=== PATIENT | male | born 1955 | race Two or more races ===

== ENCOUNTER → 2024-03-19 | Outpatient (CLI) | payer OTHER, SELFPAY ==
--- NOTE | 2024-03-19 10:30 | ECHO_ITS ---
Transthoracic Echo Report Ht (in): 67 Wt (lb): 168 Exam Location: Echo Lab Status: Preadmit Armature Tester: Queenie Rodríguez Indications: Procedure Performed: BP: / HR: Technical Quality: Fair MEASUREMENTS (Male / Female) Normal Values 2D ECHO LVOT Diameter 2.0 cm LA Volume Index 20.3 cm?/m? 16 - 28 cm?/m? Ascending Aorta Diameter 3.2 cm M-MODE Aortic Root Diameter MM 2.7 cm LA Systolic Diameter MM 3.9 cm LA Ao Ratio MM 1.4 AV Cusp Separation MM 2.2 cm DOPPLER AV Peak Velocity 115.0 cm/s AV Peak Gradient 5.3 mmHg AV Mean Gradient 3.0 mmHg AV Velocity Time Integral 22.7 cm LVOT Peak Velocity 91.6 cm/s LVOT Peak Gradient 3.4 mmHg LVOT Velocity Time Integral 20.0 cm AV Area Cont Eq vti 2.8 cm? AV Area Cont Eq pk 2.5 cm? MV Peak Velocity 76.0 cm/s MV Peak Gradient 2.3 mmHg MV Mean Velocity 40.7 cm/s MV Mean Gradient 1.0 mmHg MV Area PHT 3.1 cm? Mitral E Point Velocity 46.1 cm/s Mitral A Point Velocity 56.8 cm/s Mitral E to A Ratio 0.8 LV E' Lateral Velocity 11.7 cm/s Mitral E to LV E' Lateral Ratio 3.9 LV E' Septal Velocity 7.6 cm/s Mitral E to LV E' Septal Ratio 6.0 FINDINGS Left Ventricle Normal left ventricular size, wall thickness, systolic function with no obvious regional wall motion abnormalities.The ejection fraction is visually estimated at 55-60 %. Right Ventricle The right ventricle is normal in size and systolic function. Left Atrium The left atrium is normal by two-dimensional, color flow and Doppler imaging with no structural abnormalities, no thrombus formation present. Right Atrium The right atrium is normal by two-dimensional imaging, color flow and Doppler imaging with no struct ural abnormalities, no thrombus formation present. Atrial Septum The interatrial septum appears normal with no evidence of a shunt. Aorta The aorta is normal by two-dimensional, color flow and Doppler interrogation. Mitral Valve The mitral valve is normal by two-dimensional, color flow and Doppler interrogation. There is trace mitral valve regurgitation. Aortic Valve The aortic valve is trileaflet and normal by two-dimensional, color flow and Doppler interrogation. There is no significant aortic valve regurgitation. Tricuspid Valve The tricuspid valve is normal by two-dimensional, color flow and Doppler interrogation. There is tra ce tricuspid valve regurgitation. Pulmonic Valve There is no significant pulmonic valve regurgitation. Vessels The pulmonary artery appears normal. The inferior vena cava pulmonary and hepatic veins appear deb l. Pericardium The pericardium is normal by two-dimensional imaging. There is no significant pericardial effusion. CONCLUSIONS Deb LV size and function. Stage I diastolic dysfunction. Estimated EF 60% Normal RV size and function. Trace mitral and trace tricuspid regurgitation . Katya Christianson (Electronically Signed) Final Date: 20 March 2024 08:46
== END | disposition home or self-care (01) ==
PROVIDERS: PCP Family Medicine; Referring Provider Internal Medicine Hematology & Oncology; Visit Provider Internal Medicine Hematology & Oncology
DX: I08.1 Rheumatic disorders of both mitral and tricuspid valves (principal); C18.7 Malignant neoplasm of sigmoid colon
CPT/HCPCS: 93306

== ENCOUNTER 2024-05-25 10:29 | Outpatient (RCR) | payer OTHER, SELFPAY ==
[2024-05-22 11:58] LABS: Basophils % (Auto) 1 % (0-2.5); Eosinophils # (Auto) 0.5 Thou/mm3 (0.0-0.5); Eosinophils % (Auto) 7 % (0-10); Hematocrit 41.6 % (41.0-53.0); Hemoglobin 14.4 g/dL (13.5-16.0); Immature Granulocytes % (Auto) 0 % (0-0); Immature Granulocytes Auto 0.03 Thou/mm3 (0.00-0.00); Lymphocytes # (Auto) 2.4 Thou/mm3 (1.0-4.8); Lymphocytes % (Auto) 35 % (10-50); Mean Corpuscular HGB Conc 34.6 g/dl (31.0-37.0); Mean Corpuscular Hemoglobin 31.9 pg (25.0-35.0); Mean Corpuscular Volume 92 fL (80-100); Monocytes # (Auto) 0.6 Thou/mm3 (0.0-0.8); Monocytes % (Auto) 8 % (0-12); Neutrophils # (Auto) 3.3 Thou/mm3 (1.8-7.7); Neutrophils % (Auto) 49 % (37-80); Nucleated Red Blood Cell % 0 /100 WBC (0); Platelet Count 169 Thou/mm3 (140-440); RDW Standard Deviation 43.3 fL (35.1-43.9); Red Blood Count 4.52 Miln/mm3 (4.50-5.90); White Blood Count 6.8 Thou/mm3 (3.8-10.6)
[2024-05-22 12:13] LABS: Carcinoembryonic Antigen 2.3 ng/mL (0.0-5.0)
[2024-05-22 12:16] LABS: Alanine Aminotransferase 23 U/L (10-49); Albumin, Serum 4.7 gm/dL (3.4-4.8); Albumin/Globulin Ratio 2.1 (1.2-2.2); Alkaline Phosphatase 132 U/L (46-116); Anion Gap 9 (7-16); Aspartate Amino Transferase 26 U/L (0-34); BUN/Creatinine Ratio 11 Ratio (12-20); Blood Urea Nitrogen 10 mg/dL (9-23); Calcium 9.5 mg/dL (8.3-10.6); Calcium (Corrected) 9.5 mg/dL (8.5-10.1); Carbon Dioxide 25.2 mMol/L (20.0-31.0); Chloride 105 mMol/L (98-107); Creatinine (Component) 0.9 mg/dL (0.6-1.3); Globulin 2.2 gm/dL (2.3-3.5); Glucose 102 mg/dL (74-106); Osmolality,Calculated 276 (275-295); Potassium 3.8 mMol/L (3.4-5.1); Sodium 139 mMol/L (136-145); Total Protein 6.9 gm/dL (5.7-8.2); eGFR > 60 See Note
--- NOTE | 2024-05-25 10:55 | CTCFLWUP_ITS ---
Patient: VIVIENNE HE : 1955 Page 5 of 6 FOLLOW UP NOTE DATE OF SERVICE: 05/25/2024 NAME: VIVIENNE HE ACCOUNT: [id number] : 1955 AGE: 68 INTERVAL HISTORY: Follow-up Patient is doing well. He still have numbness and tingliness in his hands. Uses less gabapentin. Still on seizure medicines. 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 S/p surgery (07/03/2022) S/p 12 cycles of adjuvant FO LFOX 6 chemotherapy (10/17/2022?05/07/2023). Mr. He received oxaliplatin for the first 9 cycles. 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 S/p surgery (07/03/2022) TREATMENT HISTORY: Care?Plan Start?Date Cycle Day Intent mFOLFOX-6?-?5FU?400?+?2400?CIV,?LVR?400,OXALIplat?85 10/17/2022 1 14 Curative?(adjuvant) HISTORY OF PRESENT ILLNESS: Is a 68-year-old Syriac-speaking male with the following oncology history. 05/29/2022: Mr. He had colonoscopy done for abdominal pain. 06/14/2022: Mr. He had CT scan of the abdomen and pelvis with IV contrast? 07/03/2022: Mr. He had following surgery? 09/13/2022: PET/CT scan- 10/15/2022: CEA 1.7 10/17/2022: Mr. He received first cycle of adjuvant FOLFOX. 03/15/2023: PET/CT scan? 10/17/2022 - 05/07/2023: Mr. He received 12 cycles of modified FOLFOX 6. He received only 9 cycle s of oxaliplatin. Oxaliplatin was discontinued due to starting of peripheral neuropathy. Last dose of oxaliplatin was given on 11/10/2019. 08/15/2023: CEA 2.0. 09/11/2023: CT scan of the abdomen and pelvis with IV contrast OTHER MEDICAL HISTORY/CONDITIONS: HTN Colon?Cancer?-?dx?07/09/22 Exploratory Laporotom; Colectomy with low pelvie coloprotostomoy; ileocecectomy with primary anastomo sis-07/03/22 FAMILY HISTORY: Children:?DAUGHTER?/??UNKNOWN SOCIAL HISTORY: Occupational?History:?RETIRED [employer] Education?Level:?Completed High School Marital?Status:?Life?Partner Tobacco?Pack?per?Day:?0 Tobacco?Use:?Denies ETOH Use:?Drinks 12 pack beer/week x 25yrs Drug?Note:?Smokes marijuana 3-4 x /week x 30yrs; used LSD;Cocaine x4 yr Social?History?Note:?Lives?alone MEDICATIONS: 1. aspirin - 81 mg 1 tab Daily 2. Colace - 100 mg 1 Capsule one po three times a day 3. DULoxetine - 30 mg 1 Capsule Daily 4. gabapentin - 300 mg 2 Capsule Three times a day 5. hydrocodone-acetaminophen - 5-325 mg 1 tab q6 6. lisinopril - 2.5 mg 1 tab Daily 7. lisinopril - 5 mg 0.5 tab As directed 8. Vitamin D3 - 1,000 unit 1 Capsule Daily Medications Last Reconciled by Gali Persaud MA on 01/27/2024 ALLERGIES: No Known Drug Allergies REVIEW OF SYSTEMS: A complete 14-point review of systems was performed and is negative except as noted in interval histo ry. PHYSICAL EXAMINATION: VITAL SIGNS: PAIN: 0 - No pain ECOG Performance Status: 1 - Symptomatic; ambulatory; restricted in strenuous activity GENERAL APPEARANCE: Appears well, in no apparent distress, appropriately interactive. HEENT: Normocephalic, no temporal wasting, normal conjunctiva, no scleral icterus, normal hearing, li ps without lesions, neck normal range of motion. CARDIOVASCULAR: Not assessed. PULMONARY: Normal respiratory effort, no respiratory distress or use of accessory muscles, speaking i n full sentences, no tachypnea. EXTREMITIES: No pedal edema or cyanosis. SKIN: Normal skin appearance. NEUROLOGIC: Alert and oriented x4. PSHYCHIATRIC: Appropriate affect, mood normal, behavior normal, intact thought and speech. LABORATORY DATA: I have personally reviewed and interpreted each of the patient?s relevant lab tests, abnormal finding s are below: Date 05/22/24 ??CEA?(O*)?(ng/ml) 2.3 ASSESSMENT/PLAN: 1. Stage IIIc (pT3, pN2B, cM0) at least 2 poorly differentiated invasive adenocarcinoma of the sigmoi d colon with lymphovascular and perineural invasion. S/p surgery (07/03/2022) PET CT scan done on 03/15/2023 was negative for metastatic disease. Status post 12 cycles of adjuvant chemotherapy with FOLFOX 6 as documented above. For the last 3 cyc les he did not get oxaliplatin due to peripheral neuropathy. CEA is in the normal range. 2. Peripheral neuropathy Stable . getting better 3. Seizure Advised to follow with neurology ORDERS: CT chest abdomen and pelvis RETURN TO CLINIC: 3 months BILLING AND COMPLIANCE: I reviewed external records from providers outside my specialty as summarized above. I spent a total of 50 minutes on this patient?s care on the day of their visit excluding time spent related to any bi lled procedures. This time includes time spent with the patient as well as time spent documenting in the medical record, reviewing patients records and tests, obtaining history, placing orders, communi cating with other healthcare professionals, counseling the patient, family or caregiver, and/or care coordination for the diagnoses above. Electronically Signed by: Jeremy Zamora MD T: 10:53 AM CC: PCP: Melany Francisco Referring: Melany Francisco This document was completed utilizing speech recognition software. Grammatical errors, random word in sertions, pronoun errors, and incomplete sentences are an occasional consequence of this system due t o software limitations, ambient noise, and hardware issues. Any formal questions or concerns about th e content, text or information contained within the body of this dictation should be directly address ed to the provider for clarification.
== END 2024-05-29 23:59 | disposition home or self-care (01) ==
LOC: SCTC 10:29
PROVIDERS: PCP Family Medicine; Referring Provider Family Medicine; Visit Provider Internal Medicine Hematology & Oncology
DX: C18.7 Malignant neoplasm of sigmoid colon (principal); G62.9 Polyneuropathy, unspecified; R56.9 Unspecified convulsions
CPT/HCPCS: 36591; 80053; 82378; 85025; 99212; A4216; J1642; G0463

== ENCOUNTER 2024-06-25 08:18 | Outpatient (RCR) | payer OTHER, SELFPAY ==
--- NOTE | 2024-06-25 08:52 | CTCFLWUP_ITS ---
[facility] [address] [place], [place] [address] FOLLOW-UP NOTE Date: 06/25/2024 MR#: [id number] Name: VIVIENNE HE : 1955 Dx: C18.7 Malignant neoplasm of sigmoid colon Identification. Patient with history of stage IIIc ([id number]) adeno CA rectosigmoid colon with lymphovascular and perineural invasion status post surgery 07/03/2022. Completed adjuvant chemo with FOLFOX under Dr. Menendez?s direction completed 05/07/2023. CT 09/07/2023 showed no evidence of met disease. PET/CT Still having some neuropathic symptoms with some pain. She has been prescribed gabapentin from the neurologist but states that occasional [place] is helpful and he takes it sparingly only half or 1 tab a day. Labs 05/22/2024 CEA remains low at 2.3 CBC shows normal hemoglobin at 14.4 Assessment. 1. History of stage IIIc adeno CA the rectosigmoid completed adjuvant chemo 05/07/2023. Postop imaging studies of PET and CT showed no evidence of recurrence. Most recent CEA 05/22/2024 low at 2.3 2. Having some pain with lingering neuropathic symptoms needing occasional [place] along with gabapentin. Renewed [place] checked cures website. 3. Has follow-up with Dr. Zamora in 2 months. Electronically signed by: John Servin M.D. 06/25/2024 8:49 AM
== END 2024-06-26 23:59 | disposition home or self-care (01) ==
LOC: SCTC 08:18
PROVIDERS: PCP Family Medicine; Referring Provider Family Medicine; Visit Provider Radiology Therapeutic Radiology
DX: Z08 Encounter for follow-up examination after completed treatment for malignant neoplasm (principal); Z85.038 Personal history of other malignant neoplasm of large intestine; Z92.21 Personal history of antineoplastic chemotherapy; G62.9 Polyneuropathy, unspecified
CPT/HCPCS: 99213; G0463

== ENCOUNTER → 2024-08-21 | Outpatient (CLI) | payer OTHER, SELFPAY ==
--- NOTE | 2024-08-21 14:00 | XR_ITS ---
Examination: CT chest with intravenous contrast CT abdomen with intravenous contrast CT pelvis with intravenous contrast 2-D coronal and sagittal reconstructions Time of exam: August 21, [address] abdomen pelvis September 11, 2023, abdomen sonogram Second 2023, PET CT scan September 13, 2022. INDICATIONS: Diagnosis malignant neoplasm colon, post surgical removal 2.5 years ago CTDI: vol (mGy) : 16 DLP: (mGycm): 716 Technique: Multiple axial images of the chest, abdomen and pelvis with intravenous contrast, 3.0 mm slice thickness. Images obtained post intravenous injection Isovue 370 60 cc 2-D sagittal coronal reconstructions Low dose protocols, adjustment MA KV according to patient size automated exposure control FINDINGS: No thoracic aortic aneurysm dilatation No pulmonary artery filling defects No paratracheal tracheobronchial or bronchopulmonary adenopathy Calcified granuloma left lower lobe No noncalcified pulmonary metastatic nodules 8mm liver cysts No solid liver lesions No gallstones Spleen not enlarged No pancreatic or adrenal mass No renal or ureteral calculi, no hydronephrosis Aorta normal size 6 cm umbilical hernia defect containing colon but no incarcerated bowel No abdominal or pelvic lymphadenopathy Urinary bladder intact No significant prostatomegaly Prominent osteopenia Osseous structures intact Impression: No interval metastatic disease
== END | disposition home or self-care (01) ==
LOC: CCTX 13:34
PROVIDERS: PCP Family Medicine; Referring Provider Internal Medicine Hematology & Oncology; Visit Provider Internal Medicine Hematology & Oncology
DX: C18.7 Malignant neoplasm of sigmoid colon (principal)
CPT/HCPCS: 71260; 74177; A4649; Q9967

== ENCOUNTER 2024-08-24 12:59 | Outpatient (RCR) | payer OTHER, SELFPAY ==
[2024-08-21 11:01] LABS: Basophils # (Auto) 0.1 Thou/mm3 (0.0-0.2); Basophils % (Auto) 1 % (0-2.5); Eosinophils # (Auto) 0.4 Thou/mm3 (0.0-0.5); Eosinophils % (Auto) 5 % (0-10); Hematocrit 41.4 % (41.0-53.0); Hemoglobin 14.3 g/dL (13.5-16.0); Immature Granulocytes % (Auto) 0 % (0-0); Immature Granulocytes Auto 0.02 Thou/mm3 (0.00-0.00); Lymphocytes # (Auto) 2.6 Thou/mm3 (1.0-4.8); Lymphocytes % (Auto) 37 % (10-50); Mean Corpuscular HGB Conc 34.5 g/dl (31.0-37.0); Mean Corpuscular Hemoglobin 32.6 pg (25.0-35.0); Mean Corpuscular Volume 94 fL (80-100); Monocytes # (Auto) 0.6 Thou/mm3 (0.0-0.8); Monocytes % (Auto) 9 % (0-12); Neutrophils # (Auto) 3.3 Thou/mm3 (1.8-7.7); Neutrophils % (Auto) 48 % (37-80); Nucleated Red Blood Cell % 0 /100 WBC (0); Platelet Count 203 Thou/mm3 (140-440); RDW Standard Deviation 44.1 fL (35.1-43.9); Red Blood Count 4.39 Miln/mm3 (4.50-5.90)
[2024-08-21 11:22] LABS: Alanine Aminotransferase 26 U/L (10-49); Albumin, Serum 4.5 gm/dL (3.4-4.8); Alkaline Phosphatase 115 U/L (46-116); Anion Gap 7 (7-16); Aspartate Amino Transferase 29 U/L (0-34); BUN/Creatinine Ratio 17 Ratio (12-20); Bilirubin,Total 1.1 mg/dL (0.3-1.2); Blood Urea Nitrogen 15 mg/dL (9-23); Calcium 9.3 mg/dL (8.3-10.6); Calcium (Corrected) 9.3 mg/dL (8.5-10.1); Carbon Dioxide 26.9 mMol/L (20.0-31.0); Carcinoembryonic Antigen 2.3 ng/mL (0.0-5.0); Chloride 106 mMol/L (98-107); Creatinine (Component) 0.9 mg/dL (0.6-1.3); Globulin 2.2 gm/dL (2.3-3.5); Glucose 125 mg/dL (74-106); Osmolality,Calculated 281 (275-295); Potassium 3.9 mMol/L (3.4-5.1); Sodium 140 mMol/L (136-145); Total Protein 6.7 gm/dL (5.7-8.2); eGFR > 60 See Note
--- NOTE | 2024-08-25 01:09 | CTCFLWUP_ITS ---
Patient: VIVIENNE HE : 1955 Page 6 of 8 FOLLOW UP NOTE DATE OF SERVICE: 08/24/2024 NAME: VIVIENNE HE ACCOUNT: [id number] : 1955 AGE: 68 INTERVAL HISTORY: Summary Vivienne He, a 68yo male presenting for cancer surveillance follow-up, has a history of colon cancer treated with 12 cycles of FOLFOX (oxaliplatin discontinued for last 3 cycles). He has stable peripheral neuropathy managed with gabapentin and seizure medications, and recent hearing loss. CT scan () showed no metastatic disease with normal CEA (2.3). Plan includes Signatera testing, port removal referral, 6-month follow-up, continued neuropathy management, hearing device recommendation, and blood glucose monitoring. Chief Complaint Follow-up visit for cancer surveillance History of Present Illness Vivienne He is a 68-year-old male with a history of cancer, last seen on May 25, 2024, presenting for follow-up. He previously complained of numbness and tingling in his hand, for which he has been using gabapentin and seizure medications. The patient's peripheral neuropathy, which developed during his chemotherapy treatment, remains stable. He is currently being followed by neurology for this condition. Mr. He completed 12 cycles of adjuvant chemotherapy with FOLFOX, though he did not receive oxaliplatin for the last 3 cycles due to the peripheral neuropathy. Since his last visit, Mr. He has noted hearing loss. No other new symptoms or changes in his overall health status were reported. The patient has been adherent to his current medication regimen, including gabapentin and seizure medications for neuropathy management. Medical History - Peripheral neuropathy, stable - Colon cancer, treated with adjuvant chemotherapy, currently cancer-free - Hearing loss Surgical History - Port placement for chemotherapy administration (date not specified) Medications and Supplements - Gabapentin - Seizure medications - FOLFOX - Completed 12 cycles of adjuvant chemotherapy - Oxaliplatin discontinued for last 3 cycles due to peripheral neuropathy Social History - Diet: Advised to follow a plant-based diet, reduce red meat intake, avoid processed foods, and eat more fruits and vegetables Review of Systems HEENT: Positive for hearing loss. Neurological: Positive for numbness and tingling in hand. Peripheral neuropathy stable. ONCOLOGY HISTORY:?[facility] Hx? 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 S/p surgery (07/03/2022) S/p 12 cycles of adjuvant FOLFOX 6 chemotherapy (10/17/2022?05/07/2023). Mr. He received oxaliplatin for the first 9 cycles. 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 S/p surgery (07/03/2022) TREATMENT HISTORY: Care?Plan Start?Date Cycle Day Intent mFOLFOX-6?-?5FU?400?+?2400?CIV,?LVR?400,OXALIplat?85 10/17/2022 1 14 Curative?(adjuvant) HISTORY OF PRESENT ILLNESS: Is a 68-year-old Qatari-speaking male with the following oncology history. 05/29/2022: Mr. He had colonoscopy done for abdominal pain. 06/14/2022: Mr. He had CT scan of the abdomen and pelvis with IV contrast? 07/03/2022: Mr. He had following surgery? 09/13/2022: PET/CT scan- 10/15/2022: CEA 1.7 10/17/2022: Mr. He received first cycle of adjuvant FOLFOX. 03/15/2023: PET/CT scan? 10/17/2022 - 05/07/2023: Mr. He received 12 cycles of modified FOLFOX 6. He received only 9 cycles of oxaliplatin. Oxaliplatin was discontinued due to starting of peripheral neuropathy. Last dose of oxaliplatin was given on 11/10/2019. 08/15/2023: CEA 2.0. 09/11/2023: CT scan of the abdomen and pelvis with IV contrast OTHER MEDICAL HISTORY/CONDITIONS: HTN Colon?Cancer?-?dx?07/09/22 Exploratory Laporotom; Colectomy with low pelvie coloprotostomoy; ileocecectomy with primary anastomosis-07/03/22 FAMILY HISTORY: Children:?DAUGHTER?/??UNKNOWN SOCIAL HISTORY: Occupational?History:?RETIRED [employer] Education?Level:?Completed High School Marital?Status:?Life?Partner Tobacco?Pack?per?Day:?0 Tobacco?Use:?Denies ETOH Use:?Drinks 12 pack beer/week x 25yrs Drug?Note:?Smokes marijuana 3-4 x /week x 30yrs; used LSD;Cocaine x4 yr Social?History?Note:?Lives?alone MEDICATIONS: 1. aspirin - 81 mg 1 tab Daily 2. Colace - 100 mg 1 Capsule one po three times a day 3. DULoxetine - 30 mg 1 Capsule Daily 4. gabapentin - 300 mg 1 Capsule Twice a Day 5. hydrocodone-acetaminophen - 5-325 mg 1 tab q6 6. lisinopril - 2.5 mg 1 tab Daily 7. lisinopril - 5 mg 0.5 tab As directed 8. Vitamin D3 - 1,000 unit 1 Capsule Daily?Palabra Meds? Medications Last Reconciled by Gali Persaud MA on 08/24/2024 ALLERGIES: No Known Drug Allergies REVIEW OF SYSTEMS: A complete 14-point review of systems was performed and is negative except as noted in interval history. PHYSICAL EXAMINATION:?[facility] PE? VITAL SIGNS: Temperature?99.4, B/P?141/87, Oxygen?Saturation?98% Weight?172?lbs (Change?since?08/21/24:?-2.2?lbs) PAIN: 0 - No pain ECOG Performance Status: 0 - Asymptomatic and fully active GENERAL APPEARANCE: Appears well, in no apparent distress, appropriately interactive. HEENT: Normocephalic, no temporal wasting, normal conjunctiva, no scleral icterus, normal hearing, lips without lesions, neck normal range of motion. CARDIOVASCULAR: Not assessed. PULMONARY: Normal respiratory effort, no respiratory distress or use of accessory muscles, speaking in full sentences, no tachypnea. EXTREMITIES: No pedal edema or cyanosis. SKIN: Normal skin appearance. NEUROLOGIC: Alert and oriented x4. PSHYCHIATRIC: Appropriate affect, mood normal, behavior normal, intact thought and speech. LABORATORY DATA: I have personally reviewed and interpreted each of the patient?s relevant lab tests, abnormal findings are below: Physical Examination HEENT: Hearing loss noted. Laboratory, Imaging, and Diagnostic Test Results - PET scan (February 2023): Negative for metastatic disease - CT scan (August 21, 2024): No interval metastatic disease - Blood work (August 21, 2024): - White cell count: 7 (normal) - Hemoglobin: 14.3 - Glucose: 125 - CEA: 2.3 (normal) Date 05/22/24 08/21/24 ??WHITE?BLOOD?COUNT?(Thou/mm3) ? 7.0 ??RED?BLOOD?COUNT?(Miln/mm3) ? 4.39?L ??HEMOGLOBIN?(gm/dl) ? 14.3 ??HEMATOCRIT?(%) ? 41.4 ??PLATELET?COUNT?(Thou/mm3) ? 203 ??NEUTROPHILS?%,?AUTO?(%) ? 48 ??LYMPH?%,?AUTO?(%) ? 37 ??NEUTROPHILS,?AUTO?(Thou/mm3) ? 3.3 ??GLUCOSE,RANDOM?(mg/dL) ? 125?H ??BLOOD?UREA?NITROGEN?(mg/dL) ? 15 ??CREATININE?(mg/dL) ? 0.90 ??SODIUM?(mmol/L) ? 140 ??POTASSIUM?(mmol/L) ? 3.9 ??CHLORIDE?(mmol/L) ? 106 ??CrCl?(CandG)?(ml/min) ? 86.58 ??AST/SGOT?(Unit/L) ? 29 ??ALT/SGPT?(Unit/L) ? 26 ??ALKALINE?PHOSPHATASE?(Unit/L) ? 115 ??BILIRUBIN,?TOTAL?(mg/dL) ? 1.1 ??PROTEIN?TOTAL?(gm/dl) ? 6.7 ??ALBUMIN,?SERUM?(gm/dl) ? 4.5 ??GLOBULIN?(gm/dl) ? 2.2?L ??ALBUMIN/GLOBULIN?RATIO ? 2.0 ??CALCIUM,?SERUM?(mg/dL) ? 9.3 ??CALCIUM?SERUM?(CORRECTED)?(mg/dL) ? 9.3 ??CEA?(O*)?(ng/ml) 2.3 2.3 ASSESSMENT/PLAN:?Alberto Zamora Assessment/Plan? 1. 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 S/p surgery (07/03/2022) PET CT scan done on 03/15/2023 was negative for metastatic disease. Status post 12 cycles of adjuvant chemotherapy with FOLFOX 6 as documented above. For the last 3 cycles he did not get oxaliplatin due to peripheral neuropathy. Vivienne He, 68-year-old male with history of cancer, presenting for follow-up after completing adjuvant chemotherapy, with stable peripheral neuropathy and recent negative CT scan for metastatic disease. Cancer follow-up Assessment: Patient completed 12 cycles of adjuvant chemotherapy with FOLFOX, with the last 3 cycles excluding oxaliplatin due to peripheral neuropathy. Recent CT scan on August 21, 2024, shows no interval metastatic disease. PET scan in February 2023 was also negative for metastatic disease. Blood work on August 21, 2024, is normal with CEA 2.3, indicating no evidence of active cancer. Patient has been cancer-free for 3 years. Plan: - Order Signatera test (cancer DNA detection in blood) - First test to be done at the clinic - Subsequent tests to be done at home every 3 months - Follow-up appointment in 6 months - Refer to Dr. Carrizales for port removal - Dietary recommendations: - Follow a plant-based diet - Reduce red meat intake - Avoid processed foods - Increase fruit and vegetable consumption Peripheral neuropathy Assessment: Patient reports numbness and tingling in hand. Peripheral neuropathy is stable and patient is following up with neurology. Currently using gabapentin and seizure medications for management. Plan: - Continue current management with gabapentin and seizure medications - Continue follow-up with neurology Hearing loss Assessment: Patient noted to have hearing loss during the visit. Plan: - Advise patient to obtain a hearing device Elevated blood glucose Assessment: Non-fasting blood glucose level of 125 noted on recent blood work from August 21, 2024. Plan: - Monitor blood glucose levels at future visits 2. Peripheral neuropathy Stable . getting better 3. Seizure Advised to follow with neurology ORDERS: Order # Description [id number] CT Scan + With Contrast + Abdomen and Pelvis + Chest [id number] MD Follow Up 3 Months [id number] + Comprehensive Metabolic Panel - 12 + CBC with Auto Diff + CEA + MD Follow Up 6 Month [id number] RETURN TO CLINIC: BILLING AND COMPLIANCE: I reviewed external records from providers outside my specialty as summarized above. I spent a total of 50 minutes on this patient?s care on the day of their visit excluding time spent related to any billed procedures. This time includes time spent with the patient as well as time spent documenting in the medical record, reviewing patients records and tests, obtaining history, placing orders, communicating with other healthcare professionals, counseling the patient, family or caregiver, and/or care coordination for the diagnoses above. Electronically Signed by: Jeremy Zamora MD T: 1:06 AM CC: PCP: Jeremy Zamora Referring: Jeremy Zamora This document was completed utilizing speech recognition software. Grammatical errors, random word insertions, pronoun errors, and incomplete sentences are an occasional consequence of this system due to software limitations, ambient noise, and hardware issues. Any formal questions or concerns about the content, text or information contained within the body of this dictation should be directly addressed to the provider for clarification.
== END 2024-08-26 23:59 | disposition home or self-care (01) ==
LOC: SCTC 12:59
PROVIDERS: PCP Family Medicine; Referring Provider Internal Medicine Hematology & Oncology; Visit Provider Internal Medicine Hematology & Oncology
DX: Z08 Encounter for follow-up examination after completed treatment for malignant neoplasm (principal); Z85.038 Personal history of other malignant neoplasm of large intestine; Z90.49 Acquired absence of other specified parts of digestive tract; G62.9 Polyneuropathy, unspecified; Z92.21 Personal history of antineoplastic chemotherapy; H91.90 Unspecified hearing loss, unspecified ear; R73.9 Hyperglycemia, unspecified
CPT/HCPCS: 36591; 80053; 82378; 85025; 99212; A4216; J1642; G0463

== ENCOUNTER 2024-09-15 07:00 | Day surgery (SDC) | payer OTHER, SELFPAY ==
--- NOTE | 2024-09-14 06:52 | EKG_ITS ---
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
[2024-09-14 10:17] VITALS: BMI 26.9
[2024-09-14 11:04] LABS: Basophils # (Auto) 0.1 Thou/mm3 (0.0-0.2); Basophils % (Auto) 1 % (0-2.5); Eosinophils # (Auto) 0.3 Thou/mm3 (0.0-0.5); Eosinophils % (Auto) 4 % (0-10); Hematocrit 42.6 % (41.0-53.0); Hemoglobin 15.1 g/dL (13.5-16.0); Immature Granulocytes % (Auto) 0 % (0-0); Immature Granulocytes Auto 0.02 Thou/mm3 (0.00-0.00); Lymphocytes # (Auto) 2.7 Thou/mm3 (1.0-4.8); Lymphocytes % (Auto) 33 % (10-50); Mean Corpuscular HGB Conc 35.4 g/dl (31.0-37.0); Mean Corpuscular Hemoglobin 32.4 pg (25.0-35.0); Mean Corpuscular Volume 91 fL (80-100); Monocytes # (Auto) 0.6 Thou/mm3 (0.0-0.8); Monocytes % (Auto) 8 % (0-12); Neutrophils # (Auto) 4.4 Thou/mm3 (1.8-7.7); Neutrophils % (Auto) 54 % (37-80); Nucleated Red Blood Cell % 0 /100 WBC (0); Platelet Count 184 Thou/mm3 (140-440); RDW Standard Deviation 41.9 fL (35.1-43.9); Red Blood Count 4.66 Miln/mm3 (4.50-5.90); White Blood Count 8.2 Thou/mm3 (3.8-10.6)
[2024-09-14 11:35] LABS: Alanine Aminotransferase 30 U/L (10-49); Albumin, Serum 4.9 gm/dL (3.4-4.8); Alkaline Phosphatase 119 U/L (46-116); Anion Gap 8 (7-16); Aspartate Amino Transferase 30 U/L (0-34); BUN/Creatinine Ratio 15 Ratio (12-20); Blood Urea Nitrogen 15 mg/dL (9-23); Calcium 10.1 mg/dL (8.3-10.6); Calcium (Corrected) 10.1 mg/dL (8.5-10.1); Carbon Dioxide 27.8 mMol/L (20.0-31.0); Chloride 102 mMol/L (98-107); Estimated Creatinine Clearance 65.2 mL/min (>60); Globulin 2.5 gm/dL (2.3-3.5); Glucose 114 mg/dL (74-106); Osmolality,Calculated 277 (275-295); Potassium 4.3 mMol/L (3.4-5.1); Sodium 138 mMol/L (136-145); Total Protein 7.4 gm/dL (5.7-8.2); eGFR > 60 See Note
--- NOTE | 2024-09-14 13:51 | SUR.PREOP ---
EKG reviewed with Dr Villa.
[2024-09-15] VITALS (7 sets, daily range): BP systolic 107–146; BP diastolic 67–84; PULSE 54–64; RESP 12–17; TEMP 36.7–36.9; O2SAT 96–100; BMI 27.3
--- NOTE | 2024-09-15 09:11 | SUR.PHASEII ---
0911: Pt. AAOx4, vitals stable, breathing unlabored, no complaint of pain or nausea, dressing to left upper chest CDI, no active bleed noted, report recieved from MD Villa and Anurag LEE.
--- NOTE | 2024-09-15 09:14 | PD.SUROPNT ---
Date of Procedure 09/15/24 Pre Op Diagnosis History of colon cancer Post Op Diagnosis History of colon cancer Procedure Removal of Port-A-Cath Findings No external evidence of infection Procedure Description Patient brought into the operating room in supine position. After administration of monitored anesthesia care, patient's left upper chest was prepped and draped in standard surgical manner. The area overlying the Port-A-Cath was anesthetized with half percent Marcaine. An incision was made over her previous scar. Dissection was carried subcutaneous tissue. The capsule surrounding the port was excised circumferentially with electrocautery. A pursestring suture was placed around the insertion site of the catheter and the catheter along with the port were removed. There were no backbleeding noted. Hemostasis was adequate and satisfactory. Soft tissue reapproximated with interrupted suture using 2-0 Vicryl and the incision was closed 4-0 Monocryl subcuticular fashion. Instruments, needles and sponge counts were reported to be correct ?2. Patient tolerated the procedure well. She was breathing spontaneously and without difficulty and was transferred to postanesthesia care in stable condition. Anesthesia MAC and local Pathology / specimen Other (Port-A-Cath for gross inspection) Estimated Blood Loss 5 Condition Stable Disposition PACU Surgeon Kin Carrizales MD Surgical Staff Operation Date: 09/15/24 09:00 Case Staff Anesthesiologist: Julien Villa RNcash applications specialist: Pebbles Rivers
--- NOTE | 2024-09-15 09:56 | SUR.PHASEII ---
0956: Pt. AAOx4, vitals stable, breathing unlabored, no complaint of pain or nausea, dressing to left upper chest CDI, no active bleed noted, pt. tolerated sips of juice well, pt. ambulated to wheelchair with steady gait and no assist, no complications. Gave discharge instructions to the pt. and his ride, both verbalized understanding and had no further questions.
== END 2024-09-15 09:56 | disposition home or self-care (01) ==
PROVIDERS: Anesthesiology; PCP Family Medicine; Referring Provider Surgery; Visit Provider Surgery
PROC: (CPT 36590; principal; 2024-09-15 08:45)
DX: Z45.2 Encounter for adjustment and management of vascular access device (principal); Z85.030 Personal history of malignant carcinoid tumor of large intestine; Z01.810 Encounter for preprocedural cardiovascular examination
CPT/HCPCS: 36590; 36415; 80053; 85025; 93005; A4217; A4649; J0690; J2250; J2704; J3010; J3490; J7050

== ENCOUNTER → 2024-10-13 | Outpatient (CLI) | payer OTHER, SELFPAY ==
--- NOTE | 2024-10-13 13:30 | ECHO_ITS ---
Transthoracic Echo Report Ht (in): 68 Wt (lb): 168 Exam Location: Echo Lab Status: Preadmit Site Technician: Mony Calixto Indications: Procedure Performed: BP: / HR: Technical Quality: Adequate MEASUREMENTS (Male / Female) Normal Values 2D ECHO LV Diastolic Diameter PLAX 4.7 cm 4.2 - 5.9 / 3.9 - 5.3 cm LV Systolic Diameter PLAX 3.0 cm IVS Diastolic Thickness 0.7 cm 0.6 - 1.0 / 0.6 - 0.9 cm LVPW Diastolic Thickness 1.0 cm 0.6 - 1.0 / 0.6 - 0.9 cm LV Relative Wall Thickness 0.4 LA Volume Index 30.1 cm?/m? 16 - 28 cm?/m? Ascending Aorta Diameter 3.4 cm DOPPLER AV Peak Velocity 128.0 cm/s AV Peak Gradient 6.6 mmHg LVOT Peak Velocity 75.2 cm/s LVOT Peak Gradient 2.3 mmHg MV Area PHT 2.4 cm? Mitral E Point Velocity 55.3 cm/s Mitral A Point Velocity 50.9 cm/s Mitral E to A Ratio 1.1 LV E' Lateral Velocity 9.4 cm/s Mitral E to LV E' Lateral Ratio 5.9 LV E' Septal Velocity 6.1 cm/s Mitral E to LV E' Septal Ratio 9.1 PV Peak Velocity 91.2 cm/s PV Peak Gradient 3.3 mmHg FINDINGS Left Ventricle Normal left ventricular size, wall thickness, systolic function with no obvious regional wall motion abnormalities. Normal left ventricular diastolic filling pattern for age. The ejection fraction is visually estimated at 60 %. Right Ventricle The right ventricle is normal in size and systolic function. The estimated right ventricular systolic pressure can not be determined due to inadequate Doppler signal. Left Atrium The left atrium is normal by two-dimensional, color flow and Doppler imaging with no structural abnormalities, no thrombus formation present. Right Atrium The right atrium is normal by two-dimensional imaging, color flow and Doppler imaging with no structural abnormalities, no thrombus formation present. Atrial Septum The interatrial septum appears normal with no evidence of a shunt. Aorta The aorta is normal by two-dimensional, color flow and Doppler interrogation. Mitral Valve The mitral valve is normal by two-dimensional, color flow and Doppler interrogation. There is trace mitral regurgitation. Aortic Valve The aortic valve is trileaflet and normal by two-dimensional, color flow and Doppler interrogation. There is no significant aortic valve regurgitation. Tricuspid Valve The tricuspid valve is normal by two-dimensional, color flow and Doppler interrogation. There is trace tricuspid regurgitation. Pulmonic Valve The pulmonic valve is not well visualized. There is no significant pulmonic valve regurgitation. Vessels The pulmonary artery appears normal. The inferior vena cava pulmonary and hepatic veins appear normal. Pericardium The pericardium is normal by two-dimensional imaging. There is no significant pericardial effusion. CONCLUSIONS Indications: Malignant Neoplasm of Sigmoid Colon Normal LV size and function with an estimated EF of 60 to 65%. Stage I diastolic dysfunction. Normal RV size and function. Normal RVSP. Trace TR. Mild aortic valve sclerosis without stenosis. No pericardial effusion. Faraz Marks (Electronically Signed) Final Date: 13 October 2024 18:59
== END | disposition home or self-care (01) ==
LOC: SDIM 13:05
PROVIDERS: PCP Family Medicine; Referring Provider Internal Medicine Hematology & Oncology; Visit Provider Internal Medicine Hematology & Oncology
DX: C18.7 Malignant neoplasm of sigmoid colon (principal); I08.1 Rheumatic disorders of both mitral and tricuspid valves; I35.8 Other nonrheumatic aortic valve disorders; I50.30 Unspecified diastolic (congestive) heart failure
CPT/HCPCS: 93306

== ENCOUNTER 2024-12-23 08:13 | Outpatient (RCR) | payer OTHER, SELFPAY ==
--- NOTE | 2024-12-23 09:01 | CTCFLWUP_ITS ---
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 Completed adjuvant chemo 12 cycles FOLFOX [address] Menendez's direction completed 05/07/2023, last 3 cycles oxaliplatin being held due to peripheral neuropathy symptoms. Recent CT August 21, 2024 shows no interval met disease. CEA 08/21/2024 was 2.[address] Zamora with Signatera test etc. Patient experiencing persistent peripheral neuropathy symptoms but generally better with taking only 200 mg of gabapentin. Still needs occasional hydrocodone 5 which I elected to renew this day. I will see him again in 6 months. Electronically signed by: John Servin M.D. 12/23/2024 8:58 AM
== END 2024-12-27 23:59 | disposition home or self-care (01) ==
LOC: SCTC 08:13
PROVIDERS: PCP Family Medicine; Referring Provider Family Medicine; Visit Provider Radiology Therapeutic Radiology
DX: C18.7 Malignant neoplasm of sigmoid colon (principal); G62.9 Polyneuropathy, unspecified
CPT/HCPCS: 99213; G0463

== ENCOUNTER 2025-03-02 11:24 | Outpatient (RCR) | payer OTHER, SELFPAY ==
--- NOTE | 2025-03-09 23:58 | CTCFLWUP_ITS ---
Patient: VIVIENNE HE : 1955 Page 2 of 3 FOLLOW UP NOTE DATE OF SERVICE: 03/02/2025 NAME: VIVIENNE HE ACCOUNT: [id number] : 1955 AGE: 69 INTERVAL HISTORY: Summary Patient is 69-year-old male for cancer surveillance. Patient is here to review his labs. CEA is still very low. Patient did not complete Anatera. Denies any complaints concerning for recurrence Chief Complaint Follow-up visit for cancer surveillance History of Present Illness Vivienne He is a 69-year-old male with a history of cancer, last seen on May 25, 2024, presenting for follow-up. He previously complained of numbness and tingling in his hand, for which he has been using gabapentin and seizure medications. The patient's peripheral neuropathy, which developed during his chemotherapy treatment, remains stable. He is currently being followed by neurology for this condition. Mr. He completed 12 cycles of adjuvant chemotherapy with FOLFOX, though he did not receive oxaliplatin for the last 3 cycles due to the peripheral neuropathy. Since his last visit, Mr. He has noted hearing loss. No other new symptoms or changes in his overall health status were reported. The patient has been adherent to his current medication regimen, including gabapentin and seizure medications for neuropathy management. Medical History - Peripheral neuropathy, stable - Colon cancer, treated with adjuvant chemotherapy, currently cancer-free - Hearing loss Surgical History - Port placement for chemotherapy administration (date not specified) Medications and Supplements - Gabapentin - Seizure medications - FOLFOX - Completed 12 cycles of adjuvant chemotherapy - Oxaliplatin discontinued for last 3 cycles due to peripheral neuropathy Social History - Diet: Advised to follow a plant-based diet, reduce red meat intake, avoid processed foods, and eat more fruits and vegetables Review of Systems HEENT: Positive for hearing loss. Neurological: Positive for numbness and tingling in hand. Peripheral neuropathy stable. ONCOLOGY HISTORY:?[facility] Hx? 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 S/p surgery (07/03/2022) S/p 12 cycles of adjuvant FOLFOX 6 chemotherapy (10/17/2022?05/07/2023). Mr. He received oxaliplatin for the first 9 cycles. 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 S/p surgery (07/03/2022) TREATMENT HISTORY: Care?Plan Start?Date Cycle Day Intent mFOLFOX-6?-?5FU?400?+?2400?CIV,?LVR?400,OXALIplat?85 10/17/2022 1 14 Curative?(adjuvant) HISTORY OF PRESENT ILLNESS: Is a 69-year-old Japanese-speaking male with the following oncology history. 05/29/2022: Mr. He had colonoscopy done for abdominal pain. 06/14/2022: Mr. He had CT scan of the abdomen and pelvis with IV contrast? 07/03/2022: Mr. He had following surgery? 09/13/2022: PET/CT scan- 10/15/2022: CEA 1.7 10/17/2022: Mr. He received first cycle of adjuvant FOLFOX. 03/15/2023: PET/CT scan? 10/17/2022 - 05/07/2023: Mr. He received 12 cycles of modified FOLFOX 6. He received only 9 cycles of oxaliplatin. Oxaliplatin was discontinued due to starting of peripheral neuropathy. Last dose of oxaliplatin was given on 11/10/2019. 08/15/2023: CEA 2.0. 09/11/2023: CT scan of the abdomen and pelvis with IV contrast OTHER MEDICAL HISTORY/CONDITIONS: HTN Colon?Cancer?-?dx?07/09/22 Exploratory Laporotom; Colectomy with low pelvie coloprotostomoy; ileocecectomy with primary anastomosis-07/03/22 FAMILY HISTORY: Children:?DAUGHTER?/??UNKNOWN SOCIAL HISTORY: Occupational?History:?RETIRED [employer] Education?Level:?Completed High School Marital?Status:?Life?Partner Tobacco?Pack?per?Day:?0 Tobacco?Use:?Denies ETOH Use:?Drinks 12 pack beer/week x 25yrs Drug?Note:?Smokes marijuana 3-4 x /week x 30yrs; used LSD;Cocaine x4 yr Social?History?Note:?Lives?alone MEDICATIONS: 1. aspirin - 81 mg 1 tab Daily 2. atorvastatin - 40 mg 1 tab Daily 3. Colace - 100 mg 1 Capsule one po three times a day 4. DULoxetine - 30 mg 1 Capsule Daily 5. gabapentin - 300 mg 1 Capsule Twice a Day 6. hydrocodone-acetaminophen - 5-325 mg 1 tab q6 7. lisinopril - 20 mg 1 tab Daily 8. Vitamin D3 - 1,000 unit 1 Capsule Daily?Palabra Meds? Medications Last Reconciled by Huong Rivera MD on 03/02/2025 ALLERGIES: No Known Drug Allergies REVIEW OF SYSTEMS: A complete 14-point review of systems was performed and is negative except as noted in interval history. PHYSICAL EXAMINATION:?[facility] PE? VITAL SIGNS: Temperature?98.1, B/P?133/83, Oxygen?Saturation?96% Weight?174?lbs PAIN: 0 - No pain GENERAL APPEARANCE: Appears well, in no apparent distress, appropriately interactive. HEENT: Normocephalic, no temporal wasting, normal conjunctiva, no scleral icterus, normal hearing, lips without lesions, neck normal range of motion. CARDIOVASCULAR: Not assessed. PULMONARY: Normal respiratory effort, no respiratory distress or use of accessory muscles, speaking in full sentences, no tachypnea. EXTREMITIES: No pedal edema or cyanosis. SKIN: Normal skin appearance. NEUROLOGIC: Alert and oriented x4. PSHYCHIATRIC: Appropriate affect, mood normal, behavior normal, intact thought and speech. LABORATORY DATA: I have personally reviewed and interpreted each of the patient?s relevant lab tests, abnormal findings are below: Date 08/21/24 09/14/24 ??WHITE?BLOOD?COUNT?(Thou/mm3) 7.0 8.2 ??RED?BLOOD?COUNT?(Miln/mm3) 4.39?L 4.66 ??HEMOGLOBIN?(gm/dl) 14.3 15.1 ??HEMATOCRIT?(%) 41.4 42.6 ??PLATELET?COUNT?(Thou/mm3) 203 184 ??NEUTROPHILS?%,?AUTO?(%) 48 54 ??LYMPH?%,?AUTO?(%) 37 33 ??NEUTROPHILS,?AUTO?(Thou/mm3) 3.3 4.4 ??GLUCOSE,RANDOM?(mg/dL) 125?H 114?H ??BLOOD?UREA?NITROGEN?(mg/dL) 15 15 ??CREATININE?(mg/dL) 0.90 1.00 ??SODIUM?(mmol/L) 140 138 ??POTASSIUM?(mmol/L) 3.9 4.3 ??CHLORIDE?(mmol/L) 106 102 ??CrCl?(CandG)?(ml/min) 86.58 76.93 ??AST/SGOT?(Unit/L) 29 30 ??ALT/SGPT?(Unit/L) 26 30 ??ALKALINE?PHOSPHATASE?(Unit/L) 115 119?H ??BILIRUBIN,?TOTAL?(mg/dL) 1.1 1.0 ??PROTEIN?TOTAL?(gm/dl) 6.7 7.4 ??ALBUMIN,?SERUM?(gm/dl) 4.5 4.9?H ??GLOBULIN?(gm/dl) 2.2?L 2.5 ??ALBUMIN/GLOBULIN?RATIO 2.0 2.0 ??CALCIUM,?SERUM?(mg/dL) 9.3 10.1 ??CALCIUM?SERUM?(CORRECTED)?(mg/dL) 9.3 10.1 ASSESSMENT/PLAN:?Alberto Zamora Assessment/Plan? 1. 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 S/p surgery (07/03/2022) PET CT scan done on 03/15/2023 was negative for metastatic disease. Status post 12 cycles of adjuvant chemotherapy with FOLFOX 6 as documented above. For the last 3 cycles he did not get oxaliplatin due to peripheral neuropathy. Vivienne He, 69-year-old male with history of cancer, presenting for follow-up after completing adjuvant chemotherapy, with stable peripheral neuropathy and recent negative CT scan for metastatic disease. Cancer follow-up Assessment: Patient completed 12 cycles of adjuvant chemotherapy with FOLFOX, with the last 3 cycles excluding oxaliplatin due to peripheral neuropathy. Recent CT scan on August 21, 2024, shows no interval metastatic disease. PET scan in February 2023 was also negative for metastatic disease. Blood work on August 21, 2024, is normal with CEA 2.3, indicating no evidence of active cancer. Patient has been cancer-free for 3 years. Patient was referred to Dr Carrizales at the last visit for port removal. Patient have not completed imaging Advised to do CT scan chest abdomen pelvis which is recommended every 6 months for cancer surveillance for colon cancer for first 2 years then yearly from year 3-5 Early imaging if symptoms Surveillance CT scan ordered And return in 6 months to follow-up Peripheral neuropathy Assessment: Patient reports numbness and tingling in hand. Peripheral neuropathy is stable and patient is following up with neurology. Currently using gabapentin and seizure medications for management. Plan: - Continue current management with gabapentin and seizure medications - Continue follow-up with neurology Hearing loss Assessment: Patient noted to have hearing loss during the visit. Plan: - Advise patient to obtain a hearing device Elevated blood glucose Assessment: Non-fasting blood glucose level of 125 noted on recent blood work from August 21, 2024. Plan: - Monitor blood glucose levels at future visits 2. Peripheral neuropathy Stable . getting better 3. Seizure Advised to follow with neurology ORDERS: Order # Description [id number] MD Follow Up [id number] Scan + Chest + Abdomen and Pelvis + With Contrast [id number] CEA [id number] Comprehensive Metabolic Panel - 12 + CBC with Auto Diff [id number] Ferritin + Iron Panel + Vitamin B-12 + Folic Acid; Serum RETURN TO CLINIC: I reviewed the diagnosis, prognosis, and recommended treatment/procedure options with the patient (and/or their legal account executive sales representative), including the potential benefits, risks, side effects and alternative therapies. We also discussed the option of no treatment and the possibility of clinical trial participation, if applicable. All questions were addressed, and they demonstrated understanding. They provided informed consent to proceed with the proposed plan of care. BILLING AND COMPLIANCE: I reviewed external records from providers outside my specialty as summarized above. I spent a total of 50 minutes on this patient?s care on the day of their visit excluding time spent related to any billed procedures. This time includes time spent with the patient as well as time spent documenting in the medical record, reviewing patients records and tests, obtaining history, placing orders, communicating with other healthcare professionals, counseling the patient, family or caregiver, and/or care coordination for the diagnoses above. Electronically Signed by: Jeremy Zamora MD T: 11:56 PM CC: PCP: Melany Francisco Referring: Melany Francisco This document was completed utilizing speech recognition software. Grammatical errors, random word insertions, pronoun errors, and incomplete sentences are an occasional consequence of this system due to software limitations, ambient noise, and hardware issues. Any formal questions or concerns about the content, text or information contained within the body of this dictation should be directly addressed to the provider for clarification.
== END 2025-03-28 23:59 | disposition home or self-care (01) ==
LOC: SCTC 11:24
PROVIDERS: PCP Family Medicine; Referring Provider Family Medicine; Visit Provider Internal Medicine Hematology & Oncology
DX: Z08 Encounter for follow-up examination after completed treatment for malignant neoplasm (principal); Z85.038 Personal history of other malignant neoplasm of large intestine; Z92.21 Personal history of antineoplastic chemotherapy; G62.9 Polyneuropathy, unspecified; H91.90 Unspecified hearing loss, unspecified ear; R73.9 Hyperglycemia, unspecified
CPT/HCPCS: 99212; G0463

== ENCOUNTER 2025-04-08 07:57 | Outpatient (RCR) | payer OTHER, SELFPAY | END 2025-04-28 23:59 | disposition home or self-care (01) | LOC: SCTC 07:57 | PROVIDERS: PCP Family Medicine; Referring Provider Family Medicine; Visit Provider Internal Medicine Hematology & Oncology | DX: C18.7 Malignant neoplasm of sigmoid colon (principal) | CPT/HCPCS: 36415 ==